=== PATIENT | female | born 1965 | race Caucasian/White ===

== ENCOUNTER → 2016-12-26 | Outpatient (CLI) | payer OTHER ==
[~2016-12-26] VITALS: Ht 157.5 cm; Wt 71.7 kg
[~2016-12-26] MED LIST: BIOTIN800 MCG PO; DAILY MULTIPLE1 EACH PO; FISH OIL 1,0001 EAC7 PO; METHIMAZOLE10 MG PO
== END | disposition home or self-care (01) ==
LOC: AMB 10:27
PROC: 0DBK8ZX Excision of Ascending Colon, Via Natural or Artificial Opening Endoscopic, Diagnostic (ICD-10-PCS; principal; 2016-12-26)
DX: Z12.11 Encounter for screening for malignant neoplasm of colon (principal); D12.2 Benign neoplasm of ascending colon; E05.00 Thyrotoxicosis with diffuse goiter without thyrotoxic crisis or storm; H04.129 Dry eye syndrome of unspecified lacrimal gland; Z80.3 Family history of malignant neoplasm of breast; Z83.49 Family history of other endocrine, nutritional and metabolic diseases; Z83.3 Family history of diabetes mellitus
CPT/HCPCS: 88305; J2250